=== PATIENT | male | born 1985 | race African-American/Black ===

== ENCOUNTER 2018-07-13 09:19 | Emergency (ER) | payer SELFPAY ==
[~2018-07-13] VITALS: Ht 165.1 cm; Wt 63.5 kg
[2018-07-13 10:06] VITALS: BP 189/109
[2018-07-13] MEDS ORDERED: NAPROXEN 500 MG TABLET PO STA (10:31)
[2018-07-13] MEDS ORDERED: predniSONE 10 MG TABLET PO ONE (10:45)
[2018-07-13] MEDS ORDERED: CYCLOBENZAPRINE 10 MG TABLET. PO ONE (10:45)
[2018-07-13] MEDS ORDERED: HYDROcodone/APAP 5/325MG 1 TAB TABLET PO ONE (10:45)
--- NOTE | 2018-07-13 11:02 | RAD ---
EXAM: Left shoulder, 3 views; cervical spine, 4 views. HISTORY: Pain. COMPARISON: None. FINDINGS: Left shoulder: 3 views of the left shoulder obtained. There is no fracture, dislocation or subluxation. Cervical spine: For views of the cervical spine are obtained. There is mild reversal cervical lordosis. There is no significant listhesis. There is mild likely developmental decreased vertebral body height at C5 and C6. Minimal endplate remodeling at these levels. The disc spaces are preserved. IMPRESSION: No acute osseous finding. Electronically signed by: Maritza Soares MD (07/13/2018 10:58 AM) [facility]
--- NOTE | 2018-07-13 11:34 | PHYS DOC ---
Past Medical History Past Medical History: Other Additional Past Medical Histor: stomach ulcers Past Surgical History: No Surgical History Alcohol Use: Occasionally Drug Use: Marijuana Adult General Chief Complaint Chief Complaint: UPPER EXTREMITY PAIN HPI HPI Patient is a 33 year old male with no significant medical history who presents to the ED today complaining of 9 out of 10 left upper extremity pain, patient states the pain begins from the left lateral neck and radiates to the left upper extremity up to the wrist area denies any numbness or tenderness bilateral upper extremities. Denies any loss of bowel bladder function. Describes the pain as sharp and intermittent worse on rotating his neck to the left side of raising his shoulder. He states the pain began 2 days ago. He states he woke up and realized he has the pain. Patient denies anything specifically alleviating the pain. Review of Systems Review of Systems Constitutional: Denies fever or chills [] Eyes: Denies change in visual acuity, redness, or eye pain [] HENT: Denies nasal congestion or sore throat [] Respiratory: Denies cough or shortness of breath [] Cardiovascular: No additional information not addressed in HPI [] GI: Denies abdominal pain, nausea, vomiting, bloody stools or diarrhea [] : Denies dysuria or hematuria [] Musculoskeletal: Reports left lateral neck pain radiating to the left upper extremity. Integument: Denies rash or skin lesions [] Neurologic: Denies headache, focal weakness or sensory changes [] All other systems were reviewed and found to be within normal limits, except as documented in this note. Current Medications Current Medications Current Medications Medications (Trade) Dose Ordered Sig/Allison Start Time Stop Time Status Last Admin Dose Admin Acetaminophen/ Hydrocodone Bitart (Lortab 5/325) 2 tab 1X ONCE 07/13/18 10:45 07/13/18 10:46 DC 07/13/18 10:51 2 TAB Cyclobenzaprine HCl (Flexeril) 10 mg 1X ONCE 07/13/18 10:45 07/13/18 10:46 DC 07/13/18 10:52 10 MG Naproxen (Naprosyn) 500 mg 1X STAT 07/13/18 10:31 07/13/18 10:35 DC 07/13/18 10:52 500 MG Prednisone (Prednisone) 50 mg 1X ONCE 07/13/18 10:45 07/13/18 10:46 DC 07/13/18 10:52 50 MG Allergies Allergies Allergies Coded Allergies Type Severity Reaction Last Updated Verified No Known Drug Allergies 07/13/18 No Physical Exam Physical Exam Constitutional: Well developed, well nourished, no acute distress, non-toxic appearance. [] HENT: Normocephalic, atraumatic, bilateral external ears normal, oropharynx moist, no oral exudates, nose normal. [] Eyes: PERRLA, EOMI, conjunctiva normal, no discharge. [] Neck: Normal range of motion, reproducible left lateral neck pain on rotation of the neck to the left, no tenderness, supple, no stridor. [] Cardiovascular:Heart rate regular rhythm, no murmur [] Lungs & Thorax: Bilateral breath sounds clear to auscultation [] Abdomen: Bowel sounds normal, soft, no tenderness, no masses, no pulsatile masses. [] Skin: Warm, dry, no erythema, no rash. [] Back: No tenderness, no CVA tenderness. [] Extremities: Reproducible left shoulder pain on raising the shoulder. No tenderness, no cyanosis, no clubbing, ROM intact, no edema. [] Neurologic: Alert and oriented X 3, normal motor function, normal sensory function, no focal deficits noted. Cranial nerves II through XII intact Psychologic: Affect normal, judgement normal, mood normal. [] Current Patient Data Vital Signs Vital Signs Date Time Temp Pulse Resp B/P (MAP) Pulse Ox O2 Delivery O2 Flow Rate FiO2 07/13/18 10:06 98.3 66 18 189/109 (135) 99 Room Air 98.3 EKG EKG [] Radiology/Procedures Radiology/Procedures []PROCEDURE: CERVICAL SPINE 2-3V EXAM: Left shoulder, 3 views; cervical spine, 4 views. HISTORY: Pain. COMPARISON: None. FINDINGS: Left shoulder: 3 views of the left shoulder obtained. There is no fracture, dislocation or subluxation. Cervical spine: For views of the cervical spine are obtained. There is mild reversal cervical lordosis. There is no significant listhesis. There is mild likely developmental decreased vertebral body height at C5 and C6. Minimal endplate remodeling at these levels. The disc spaces are preserved. IMPRESSION: No acute osseous finding. Electronically signed by: Maritza Soares MD (07/13/2018 10:58 AM) [place] [id number] DICTATED and SIGNED BY: MARITZA SOARES MD DATE: 07/13/18 1058 PROCEDURE: SHOULDER 2+V LEFT EXAM: Left shoulder, 3 views; cervical spine, 4 views. HISTORY: Pain. COMPARISON: None. FINDINGS: Left shoulder: 3 views of the left shoulder obtained. There is no fracture, dislocation or subluxation. Cervical spine: For views of the cervical spine are obtained. There is mild reversal cervical lordosis. There is no significant listhesis. There is mild likely developmental decreased vertebral body height at C5 and C6. Minimal endplate remodeling at these levels. The disc spaces are preserved. IMPRESSION: No acute osseous finding. Electronically signed by: Maritza Soares MD (07/13/2018 10:58 AM) [place] [id number] DICTATED and SIGNED BY: MARITZA SOARES MD DATE: 07/13/18 105 Course & Med Decision Making Course & Med Decision Making Pertinent Labs and Imaging studies reviewed. (See chart for details) This is a 33-year-old female patient presenting to the ED today with left lateral neck pain radiating to the left upper extremity for 2 days, no known injury. Cervical spine, left shoulder x-rays and acute findings. Pain appears musculoskeletal. Will be discharged with diclofenac, Medrol Dosepak, and cyclo benzaprine. BP was noted at 189/109 patient denies any previous history of hypertension. I advised him to follow-up with her primary care doctor for blood pressure monitoring. Encouraged to consider smoking cessation. Dragon Disclaimer Dragon Disclaimer This electronic medical record was generated, in whole or in part, using a voice recognition dictation system. Departure Departure Impression: Primary Impression: Cervical radiculopathy Additional Impressions: Tendinitis of left shoulder Elevated blood pressure reading Disposition: HOME, SELF-CARE Condition: STABLE Referrals: NO PCP (PCP) follow up with your doctor in 1-2 weeks Patient Instructions: Cervical Radiculopathy, Hypertension, Tendinitis Additional Instructions: You were evaluated in the emergency room for pain, your left shoulder x-ray and neck x-rays are negative for any acute findings. Your pain appears musculoskeletal. Your blood pressure was 189/109, this is high, normal blood pressures less than 120/80. Consider smoking cessation. Consider establishing care with a primary care doctor and follow-up for medical management. Scripts Cyclobenzaprine Hcl (CYCLOBENZAPRINE HCL) 10 Mg Tablet 1 TAB PO TID, #30 TAB Prov: MISSAEL RODRÍGUEZ APRN 07/13/18 Diclofenac Sodium (DICLOFENAC SODIUM) 50 Mg Tablet.dr 1 TAB PO BID, #20 TAB 0 Refills Prov: MISSAEL RODRÍGUEZ APRN 07/13/18 Methylprednisolone (MEDROL) 4 Mg Tab.ds.pk 1 PKG PO UD, #1 PKG Prov: MISSAEL RODRÍGUEZ APRN 07/13/18 Problem Qualifiers MISSAEL RODRÍGUEZ APRN July 13, 2018 11:34
[2018-07-13] MEDS ORDERED: DICL50TA4 PO (11:38)
[2018-07-13] MEDS ORDERED: METH4TAB2 PO (11:38)
[2018-07-13] MEDS ORDERED: CYCL10TA2 PO (11:38)
== END 2018-07-13 11:47 | disposition home or self-care (01) ==
LOC: ER 09:19
DX: M54.12 Radiculopathy, cervical region (principal); M75.82 Other shoulder lesions, left shoulder; R03.0 Elevated blood-pressure reading, without diagnosis of hypertension
CPT/HCPCS: 72040; 73030; 99284; J7512